=== PATIENT | female | born 1970 | race African-American/Black ===

== ENCOUNTER 2018-05-31 09:33 | Observation (INO) ==
[2018-05-31] MEDS ORDERED: Sod Chloride 0.9% Inj 1,000 ML IV.SIG ONE (10:01)
--- NOTE | 2018-05-31 10:19 | XR ---
EXAM DATE: 05/31/2018 10:14 AM EDT AGE/SEX: 47 years / Female INDICATIONS: Epigastric pain just under diaphgraghm. Rectal bleeding x 2 days. CLINICAL DATA: This is the patient's initial encounter. Patient reports that signs and symptoms have been present for 2 days and indicates a pain score of 7/10. MEDICAL/SURGICAL HISTORY: . Peptic ulcer. Cholecystectomy. Tubal ligation. Knee sx. COMPARISON: No prior exams available for comparison. FINDINGS: A single AP view of the chest demonstrates the lungs to be symmetrically aerated without evidence of mass, infiltrate or effusion. The cardiomediastinal contours are unremarkable. Osseous structures a re intact. CONCLUSION: No acute cardiopulmonary disease Electronically signed by: Jaylan Park MD 05/31/2018 10:18 AM EDT
[2018-05-31 10:23] LABS: Baso % (Auto) 0.6 % (0.0-2.0); Eos # (Auto) 0.1 th/mm3 (0.0-0.4); Hematocrit 33.6 % (35.0-46.0); Hemoglobin 11.5 gm/dL (11.6-15.3); Lymph # (Auto) 1.7 th/mm3 (1.0-4.8); Mean Corpuscular HGB Conc 34.3 % (32.0-36.0); Mean Corpuscular Hemoglobin 30.2 pg (27.0-34.0); Mean Corpuscular Volume 88.2 fL (80.0-100.0); Mean Platelet Volume 8.4 fL (7.0-11.0); Mono # (Auto) 0.3 th/mm3 (0.0-0.9); Mono % (Auto) 4.2 % (0.0-8.0); Neut # (Auto) 5.1 th/mm3 (1.8-7.7); Neut % (Auto) 69.2 % (16.0-70.0); Platelet Count 322 th/mm3 (150-450); Red Blood Count 3.81 mil/mm3 (4.00-5.30); Red Cell Distribution Width 13.7 % (11.6-17.2); White Blood Count 7.2 th/mm3 (4.0-11.0)
[2018-05-31 10:33] LABS: Chloride 106 meq/L (98-107); Potassium 4.3 meq/L (3.5-5.1); Sodium 139 meq/L (136-145)
[2018-05-31 10:36] LABS: Activated Partial Thrombo Time 27.5 sec (24.3-30.1); Calcium 8.6 mg/dL (8.5-10.1); INR 1.1 Ratio; Prothrombin Time 11.6 sec (9.8-11.6)
[2018-05-31 10:37] LABS: Albumin 3.3 g/dL (3.4-5.0); Anion Gap 8 meq/L (5-15); Blood Urea Nitrogen 10 mg/dL (7-18); Carbon Dioxide 25.4 meq/L (21.0-32.0); Glucose,Random 96 mg/dL (74-106); Lipase 143 U/L (73-393)
[2018-05-31 10:38] LABS: Bilirubin,Urine Negative (Negative); Clarity,Urine Clear (Clear); Color,Urine Yellow (Yellw/Straw); Glucose,Urine (UA) Negative (Negative); Leukocyte Esterase,Urine Negative (Negative); Nitrite,Urine Negative (Negative); PH,Urine 6.5 (5.0-8.5); Urobilinogen,Urine 0.2 mg/dL (Less than 2)
[2018-05-31 10:40] LABS: Alanine Aminotransferase 16 U/L (10-53); Aspartate Aminotransferase 13 U/L (15-37); Glomerular Filtration Rate 75 mL/min (>89)
[2018-05-31 10:41] LABS: Total Protein 7.9 g/dL (6.4-8.2)
--- NOTE | 2018-05-31 10:41 | ED ---
HPI General Chief complaint: Abdominal Pain Stated complaint: Rectal Bleeding x 2 Days Time Seen by Provider: 05/31/18 09:50 History of Present Illness HPI narrative: 47-year-old female here for evaluate blood in the stool. Patient has been having epigastric pain for the last 3 days followed by bright red blood in the stool as well as black stool for the last 2 days, patient tried omeprazole [id number] for pain but did not help, she called her primary care physician who told her to come to the ER. Patient rates the epigastric pain as 6 out of 10, constant, nothing makes it better but leaning forward makes it worse, no nausea or vomiting. Related Data Home Medications Medication Instructions Recorded Confirmed cholecalciferol (vitamin D3) 2,000 unit PO DAILY 05/31/18 05/31/18 [Vitamin D3] [id number]-[id number]-caekwiw fum 1 tab PO DAILY 05/31/18 05/31/18 [Multi Vitamin] Allergies Allergy/AdvReac Type Severity Reaction Status Date / Time No Known Allergies Allergy Unverified 05/31/18 09:37 Review of Systems Except as stated in HPI: all other systems reviewed are negative [facility] Medical History Medical History Peptic ulcer (Acute) Tubal ligation status (Acute) Surgical History Surgical History H/O knee surgery (Acute) Hx of cholecystectomy (Acute) Social History Social History Substance History: No History of Abuse Smoking Status: Never smoker How Often Do You Have a Drink Containing Alcohol: 2 to 4 times a month Recent Travel in [facility] within the Last 8 Weeks: No Recent Out of Country Travel within the Last 8 Weeks: No Immunization History Tetanus Immunization: <5 Years Hx Influenza Vaccine This Season: Yes Exam Narrative Exam Narrative: GENERAL: Alert oriented x3 no acute distress. SKIN: Focused skin assessment warm/dry. HEAD: Atraumatic. Normocephalic. EYES: Pupils equal and round. No scleral icterus. No injection or drainage. ENT: No nasal bleeding or discharge. Mucous membranes pink and moist. NECK: Trachea midline. No JVD. CARDIOVASCULAR: Regular rate and rhythm. No murmur appreciated. RESPIRATORY: No accessory muscle use. Clear to auscultation. Breath sounds equal bilaterally. GASTROINTESTINAL: Abdomen soft, non-tender, nondistended. Hepatic and splenic margins not palpable. MUSCULOSKELETAL: No obvious deformities. No clubbing. No cyanosis. No edema. NEUROLOGICAL: Awake and alert. No obvious cranial nerve deficits. Motor grossly within normal limits. Normal speech. PSYCHIATRIC: Appropriate mood and affect; insight and judgment normal. Course Initial Documented Vital Signs Temperature 98.1 F 05/31/18 09:37 Pulse Rate 65 05/31/18 09:37 Respiratory Rate 18 05/31/18 09:37 Blood Pressure 142/82 H 05/31/18 09:37 Pulse Oximetry 98 05/31/18 09:37 Last Documented Vital Signs Temperature 98.1 F 05/31/18 09:37 Pulse Rate 69 05/31/18 10:22 Respiratory Rate 16 05/31/18 10:22 Blood Pressure 149/81 H 05/31/18 10:22 Pulse Oximetry 98 05/31/18 10:22 Medical Decision Making MDM Narrative Medical decision making narrative: 47-year-old female here for evaluation of epigastric pain and blood/black stool, Hemoccult stool was positive here in the ER, patient is post stable not hypertensive not in acute distress. Physical examination is unremarkable chest x-ray shows no evidence of free air, no rebound or concern of perforated ulcer, she was given 1 L of IV fluids and 40 mg of Protonix. Patient will be admitted for further evaluation. Lab Data Result diagrams: 05/31/18 10:17 05/31/18 10:17 Lab Results 05/31/18 05/31/18 05/31/18 Range/Units 10:17 10:17 10:17 CBC w Diff Auto diff final WBC 7.2 (4.0-11.0) th/mm3 RBC 3.81 L (4.00-5.30) mil/mm3 Hgb 11.5 L (11.6-15.3) gm/dL Hct 33.6 L (35.0-46.0) % MCV 88.2 (80.0-100.0) fL MCH 30.2 (27.0-34.0) pg MCHC 34.3 (32.0-36.0) % RDW 13.7 (11.6-17.2) % Plt Count 322 (150-450) th/mm3 MPV 8.4 (7.0-11.0) fL Neut % (Auto) 69.2 (16.0-70.0) % Lymph % (Auto) 24.0 (9.0-44.0) % [place] % (Auto) 4.2 (0.0-8.0) % Eos % (Auto) 2.0 (0.0-4.0) % Baso % (Auto) 0.6 (0.0-2.0) % Neut # (Auto) 5.1 (1.8-7.7) th/mm3 Lymph # (Auto) 1.7 (1.0-4.8) th/mm3 [place] # (Auto) 0.3 (0.0-0.9) th/mm3 Eos # (Auto) 0.1 (0.0-0.4) th/mm3 Baso # (Auto) 0.0 (0.0-0.2) th/mm3 WBC Differential . PT 11.6 (9.8-11.6) sec INR 1.1 Ratio APTT 27.5 (24.3-30.1) sec Sodium 139 (136-145) meq/L Potassium 4.3 (3.5-5.1) meq/L Chloride 106 (98-107) meq/L Carbon Dioxide 25.4 (21.0-32.0) meq/L Anion Gap 8 (5-15) meq/L BUN 10 (7-18) mg/dL Creatinine 0.97 (0.50-1.00) mg/dL Estimated GFR 75 L (>89) mL/min Random Glucose 96 (74-106) mg/dL Lactic Acid (0.4-2.0) mmol/L Calcium 8.6 (8.5-10.1) mg/dL Total Bilirubin 0.4 (0.2-1.0) mg/dL AST 13 L (15-37) U/L ALT 16 (10-53) U/L Alkaline Phosphatase 39 L (45-117) U/L Total Protein 7.9 (6.4-8.2) g/dL Albumin 3.3 L (3.4-5.0) g/dL Lipase 143 (73-393) U/L Urine Color (Yellw/Straw) Urine Clarity (Clear) Urine pH (5.0-8.5) Ur Specific [place] (1.002-1.035) Urine Protein (Neg-Trace) mg/dL Urine Glucose (UA) (Negative) mg/dL Urine Ketones (Negative) mg/dL Urine Occult Blood (Negative) Urine Nitrate (Negative) Urine Bilirubin (Negative) Urine Urobilinogen (Less than 2) mg/dL Ur Leukocyte Esterase (Negative) Urine RBC (0-3) /hpf Urine WBC (0-5) /hpf Ur Squamous Epith Cells (0-5) /hpf Micro UA Comment Urine Culture Comments 05/31/18 05/31/18 Range/Units 10:17 10:30 CBC w Diff WBC (4.0-11.0) th/mm3 RBC (4.00-5.30) mil/mm3 Hgb (11.6-15.3) gm/dL Hct (35.0-46.0) % MCV (80.0-100.0) fL MCH (27.0-34.0) pg MCHC (32.0-36.0) % RDW (11.6-17.2) % Plt Count (150-450) th/mm3 MPV (7.0-11.0) fL Neut % (Auto) (16.0-70.0) % Lymph % (Auto) (9.0-44.0) % [place] % (Auto) (0.0-8.0) % Eos % (Auto) (0.0-4.0) % Baso % (Auto) (0.0-2.0) % Neut # (Auto) (1.8-7.7) th/mm3 Lymph # (Auto) (1.0-4.8) th/mm3 [place] # (Auto) (0.0-0.9) th/mm3 Eos # (Auto) (0.0-0.4) th/mm3 Baso # (Auto) (0.0-0.2) th/mm3 WBC Differential PT (9.8-11.6) sec INR Ratio APTT (24.3-30.1) sec Sodium (136-145) meq/L Potassium (3.5-5.1) meq/L Chloride (98-107) meq/L Carbon Dioxide (21.0-32.0) meq/L Anion Gap (5-15) meq/L BUN (7-18) mg/dL Creatinine (0.50-1.00) mg/dL Estimated GFR (>89) mL/min Random Glucose (74-106) mg/dL Lactic Acid 0.8 (0.4-2.0) mmol/L Calcium (8.5-10.1) mg/dL Total Bilirubin (0.2-1.0) mg/dL AST (15-37) U/L ALT (10-53) U/L Alkaline Phosphatase (45-117) U/L Total Protein (6.4-8.2) g/dL Albumin (3.4-5.0) g/dL Lipase (73-393) U/L Urine Color Yellow (Yellw/Straw) Urine Clarity Clear (Clear) Urine pH 6.5 (5.0-8.5) Ur Specific [place] 1.010 (1.002-1.035) Urine Protein Negative (Neg-Trace) mg/dL Urine Glucose (UA) Negative (Negative) mg/dL Urine Ketones Negative (Negative) mg/dL Urine Occult Blood Small H (Negative) Urine Nitrate Negative (Negative) Urine Bilirubin Negative (Negative) Urine Urobilinogen 0.2 (Less than 2) mg/dL Ur Leukocyte Esterase Negative (Negative) Urine RBC 0-3 (0-3) /hpf Urine WBC 0-5 (0-5) /hpf Ur Squamous Epith Cells 0-5 (0-5) /hpf Micro UA Comment Culture not ind Urine Culture Comments Culture not ind Imaging Data Radiologist's impression: ITS Impressions Chest X-Ray 05/31/18 10:01 CONCLUSION: No acute cardiopulmonary disease Discharge Plan Discharge Disposition Patient Disposition: 02 Transfer to [facility] Physicians Team ED Provider: Sal King Primary Care Provider: NON STAFF,PROVIDER Rxs /Orders / Referrals /Forms Prescriptions: No Action cholecalciferol (vitamin D3) [Vitamin D3] 2,000 unit Capsule 2,000 unit PO DAILY RF: 0 [id number]-riuaohjv-kgglkcu fum [Multi Vitamin] 9 mg iron/15 mL Liquid 1 tab PO DAILY RF: 0 Discharge Interventions Interventions: Vital Signs Last Done: 05/31/18 10:22 Status ED Status: With Doctor
[2018-05-31 10:43] LABS: Alkaline Phosphatase 39 U/L (45-117)
[2018-05-31] MEDS ORDERED: Pantoprazole Inj 40 MG Vial IV.PUSH ONE (10:43)
[2018-05-31 10:52] LABS: RBC,Urine 0-3 /hpf (0-3); Squamous Epithelial Cell,Urine 0-5 /hpf (0-5); WBC,Urine 0-5 /hpf (0-5)
--- NOTE | 2018-05-31 13:59 | P.HPIM ---
History of Present Illness Primary Care Physician: PROVIDER NON STAFF Chief Complaint: rectal bleed History of Present Illness: patient is a 47 y/o female who presented to ER with rectal bleed. she says that she started to have some epigastric pain three days ago. later she started to have rectal bleed last night. she describes it as ' fresh blood'. she says that she had a couple of bloody bowel movements since last night. she denies any chest pain, sob or dizziness. she denies any history of NSAIDs use other than occasional use of motrin. - Diagnosis (1) Rectal bleed (2) Anemia (3) Epigastric pain Inpatient Certification: I certify that the inpatient services were ordered in accordance with Medicare regulations governing the order. This includes certification that hospital inpatient services are reasonable and necessary and in the case of services not specified as inpatient-only under 42 CFR 419.22(n), that they are appropriately provided as inpatient services in accordance to with the 2-midnight benchmark under 43 CFR 412.3(e) Estimated Total Length of Stay (Days): 2 Plans for Post Hospital Care: Home Review of Systems All other systems reviewed negative except as stated in HPI PMFSH - History History Provided By: Patient - Medical History Medical History: Medical History (Last Updated 05/31/18 @ 13:43 by LOUISA Grant) Peptic ulcer - Surgical History Surgical History: Surgical History (Last Updated 05/31/18 @ 13:43 by LOUISA Grant) H/O knee surgery History of tubal ligation Hx of cholecystectomy - Tobacco History Smoking Status: Never smoker - Alcohol History How Often Do You Have a Drink Containing Alcohol: 2 to 4 times a month - Substance Use History Substance History: No History of Abuse - Travel History Recent Travel in the [place] Within the Last 8 Weeks: No Recent Travel Out of the Country Within the Last 8 Weeks: No - Immunization History Tetanus Immunization: <5 Years Hx Influenza Vaccine This Season: Yes Medications and Allergies Active Medications: Active Medications Sodium Chloride (Ns Inj) 1,000 mls @ 100 mls/hr IV.CONT .Q10H MARGIE Pantoprazole Sodium (Protonix Inj) 40 mg IV.PUSH Q24H MARGIE Allergies Allergy/AdvReac Type Severity Reaction Status Date / Time No Known Allergies Allergy Unverified 05/31/18 09:37 Home Medications Medication Instructions Recorded Confirmed Type cholecalciferol (vitamin D3) 2,000 unit PO DAILY 05/31/18 05/31/18 History [Vitamin D3] mqbnedvy-maebudoy-qosypfy fum 1 tab PO DAILY 05/31/18 05/31/18 History [Multi Vitamin] Exam Vital signs: Vital Signs 05/31/18 09:37 05/31/18 10:22 05/31/18 12:21 Temperature 98.1 F Pulse Rate 65 69 63 Respiratory Rate 18 16 18 Blood Pressure 142/82 H 149/81 H 141/79 H Pulse Oximetry 98 98 97 05/31/18 13:40 Temperature 97.9 F Pulse Rate 54 L Respiratory Rate 18 Blood Pressure 117/66 Pulse Oximetry 100 Intake & Output 05/30/18 05/31/18 05/31/18 18:59 06:59 18:59 Intake Total 1000 / 1000 Balance 1000 / 1000 Weight 95.1 kg Intake: IV 1000 / 1000 NS Inj 1,000 ML @ Wide Open IV. 1000 / 1000 SIG BOLUS ONE Rx#:[id number] - Constitutional no acute distress - Routine HEENT Exam Head: Present: normocephalic, atraumatic - Routine Neck Exam Present: supple, full ROM - Routine Respiratory Exam Present: CTA bilaterally - Routine Cardiovascular Exam Present: RRR - Routine Abdominal Exam Present: soft, normoactive bowel sounds - Routine Neurological Exam Present: alert, oriented X3 Results - Labs CBC & Chem 7: 06/01/18 05:43 05/31/18 10:17 Labs: Short CBC 05/31/18 Range/Units 10:17 WBC 7.2 (4.0-11.0) th/mm3 Hgb 11.5 L (11.6-15.3) gm/dL Hct 33.6 L (35.0-46.0) % Plt Count 322 (150-450) th/mm3 BMP 05/31/18 10:17 Sodium 139 Potassium 4.3 Chloride 106 Carbon Dioxide 25.4 BUN 10 Creatinine 0.97 Calcium 8.6 Liver Function 05/31/18 Range/Units 10:17 Total Bilirubin 0.4 (0.2-1.0) mg/dL AST 13 L (15-37) U/L ALT 16 (10-53) U/L Alkaline Phosphatase 39 L (45-117) U/L Albumin 3.3 L (3.4-5.0) g/dL Urine 05/31/18 Range/Units 10:30 Urine Color Yellow (Yellw/Straw) Urine Clarity Clear (Clear) Urine pH 6.5 (5.0-8.5) Ur Specific [place] 1.010 (1.002-1.035) Urine Protein Negative (Neg-Trace) mg/dL Urine Glucose (UA) Negative (Negative) mg/dL - Imaging Impressions Chest X-Ray 05/31/18 10:01 CONCLUSION: No acute cardiopulmonary disease Caprini VTE Risk Assessment Caprini VTE Risk Assessment: No/Low Risk (score <= 1) VTE Pharmacological Exception Reason: Active bleeding Caprini Risk Assessment Model: Point Value = 1 Point Value = 2 Point Value = 3 Point Value = 5 Age 41-60 Minor surgery BMI > 25 kg/m2 Swollen legs Varicose veins or History of unexplained or recurrent spontaneous Oral contraceptives or hormone replacement Sepsis (< 1 month) Serious lung disease, including pneumonia (< 1 month) Abnormal pulmonary function Acute myocardial infarction Congestive heart failure (< 1 month) History of inflammatory bowel disease Medical patient at bed rest Age 61-74 Arthroscopic surgery Major open surgery (> 45 min) Laparoscopic surgery (> 45 min) Malignancy Confined to bed (> 72 hours) Immobilizing plaster cast Central venous access Age >= 75 History of VTE Family history of VTE Factor V Leiden Prothrombin [id number] Lupus anticoagulant Anticardiolipin antibodies Elevated serum homocysteine Heparin-induced thrombocytopenia Other congenital or acquired thrombophilia Stroke (< 1 month) Elective arthroplasty Hip, pelvis, or leg fracture Acute spinal cord injury (< 1 month) Prophylaxis Regimen: Total Risk Factor Score Risk Level Prophylaxis Regimen 0-1 Low Early ambulation 2 Moderate Order ONE of the following: *Sequential Compression Device (SCD) *Heparin 5000 units SQ BID 3-4 Higher Order ONE of the following medications: *Heparin 5000 units SQ TID *Enoxaparin/Lovenox 40 mg SQ daily (WT < 150 kg, CrCl > 30 mL/min) *Enoxaparin/Lovenox 30 mg SQ daily (WT < 150 kg, CrCl > 10-29 mL/min) *Enoxaparin/Lovenox 30 mg SQ BID (WT < 150 kg, CrCl > 30 mL/min) AND/OR *Sequential Compression Device (SCD) 5 or more Highest Order ONE of the following medications: *Heparin 5000 units SQ TID (Preferred with Epidurals) *Enoxaparin/Lovenox 40 mg SQ daily (WT < 150 kg, CrCl > 30 mL/min) *Enoxaparin/Lovenox 30 mg SQ daily (WT < 150 kg, CrCl > 10-29 mL/min) *Enoxaparin/Lovenox 30 mg SQ BID (WT < 150 kg, CrCl > 30 mL/min) AND *Sequential Compression Device (SCD) Assessment and Plan - Assessment (1) Rectal bleed Code(s): K62.5 - Hemorrhage of anus and rectum Status: Acute Plan: monitor H/H- will consult GI. continue with supportive care. (2) Anemia Code(s): D64.9 - Anemia, unspecified Status: Acute Plan: likely acute due to rectal bleed- continue monitoring H/H and transfuse with PRBC as needed- GI consulted as noted above. (3) Epigastric pain Code(s): R10.13 - Epigastric pain Status: Acute Plan: suspect PUD- continue PPI and consult GI. - Plan Discharge Planning: awaiting GI evaluation.
[2018-05-31] MEDS: Sod Chloride 0.9% Inj 1,000 ML IV.CONT SCH (14:17)
[2018-05-31] MEDS ORDERED: Diatrizoate Meglum/Diatrizoate Sod Liq 9 ML UDC PO ONE (16:45)
[2018-05-31] MEDS ORDERED: PEG 3350/E-Lyte Soln 4000 ML Bottle PO ONE (18:00)
[2018-05-31 18:07] LABS: Hemoglobin 10.8 gm/dL (11.6-15.3)
[2018-06-01 06:26] LABS: Hematocrit 33.3 % (35.0-46.0); Hemoglobin 10.9 gm/dL (11.6-15.3); Mean Corpuscular HGB Conc 32.7 % (32.0-36.0); Mean Corpuscular Hemoglobin 29.7 pg (27.0-34.0); Mean Corpuscular Volume 90.8 fL (80.0-100.0); Mean Platelet Volume 8.6 fL (7.0-11.0); Platelet Count 303 th/mm3 (150-450); Red Blood Count 3.67 mil/mm3 (4.00-5.30); White Blood Count 7.7 th/mm3 (4.0-11.0)
[2018-06-01] MEDS: Pantoprazole Inj 40 MG Vial IV.PUSH SCH (09:14)
[2018-06-01] MEDS: Sod Chloride 0.9% Inj 1,000 ML IV.CONT SCH ×2 (09:16→09:17)
--- NOTE | 2018-06-01 13:39 | P.PNIM ---
Subjective Interval history: in no acute distress. no further rectal bleed over night. has minimal epigastric pain. no sob or dizziness. Physical Exam Vital signs: Vital Signs 05/31/18 13:40 05/31/18 17:18 05/31/18 20:00 Temperature 97.9 F 98.0 F 97.8 F Pulse Rate 54 L 64 58 L Respiratory Rate 18 20 Blood Pressure 117/66 134/76 151/85 H Pulse Oximetry 100 99 100 06/01/18 00:00 06/01/18 04:00 06/01/18 08:26 Temperature 97.0 F L 98.6 F 97.8 F Pulse Rate 61 90 63 Respiratory Rate 20 16 20 Blood Pressure 118/65 157/76 H 116/64 Pulse Oximetry 98 95 99 06/01/18 12:02 Temperature 97.4 F L Pulse Rate 61 Respiratory Rate 20 Blood Pressure 122/60 Pulse Oximetry 99 Intake & Output 05/31/18 06/01/18 06/01/18 18:59 06:59 18:59 Intake Total 1000 / 1000 1000 / 1000 Balance 1000 / 1000 1000 / 1000 Weight 95.1 kg 99.8 kg Intake: IV 1000 / 1000 1000 / 1000 NS Inj 1,000 ML @ 100 mls/hr IV 1000 / 1000 .CONT .Q10H MARGIE Rx#:[id number] NS Inj 1,000 ML @ Wide Open IV. 1000 / 1000 SIG BOLUS ONE Rx#:[id number] Other: # Voids 2 Date of Last Bowel Movement 05/31/18 06/01/18 - Constitutional no acute distress - Routine Respiratory Exam Present: CTA bilaterally - Routine Cardiovascular Exam Present: RRR - Routine Abdominal Exam Present: soft Comments: mild epigastric tenderness. - Routine Neurological Exam Present: alert, oriented X3 Results - Labs CBC & Chem 7: 06/01/18 05:43 05/31/18 10:17 Laboratory Results - last 24 hr 05/31/18 06/01/18 17:55 05:43 WBC 7.7 RBC 3.67 L Hgb 10.8 L 10.9 L Hct 31.0 L 33.3 L MCV 90.8 MCH 29.7 MCHC 32.7 RDW 13.0 Plt Count 303 MPV 8.6 - Imaging Impressions Abdomen/Pelvis CT 06/01/18 00:27 CONCLUSION: 1. Enlarged retroverted uterus without definite masses. 2. Otherwise, negative CT abdomen/pelvis with contrast. Assessment and Plan - Assessment (1) Rectal bleed Code(s): K62.5 - Hemorrhage of anus and rectum Status: Acute Plan: H/H stable- GI consult pending. continue with supportive care. (2) Anemia Code(s): D64.9 - Anemia, unspecified Status: Acute Plan: likely acute due to rectal bleed- continue monitoring H/H- GI consulted as noted above. (3) Epigastric pain Code(s): R10.13 - Epigastric pain Status: Acute Plan: suspect PUD- continue PPI and consult GI. - Plan Discharge Planning: awaiting GI evaluation.
[2018-06-02] MEDS: Sod Chloride 0.9% Inj 1,000 ML IV.CONT SCH ×2 (02:51→08:41)
--- NOTE | 2018-06-02 08:28 | P.PN ---
Subjective Interval history: resting comfortably with no distress. no further rectal bleed and no abdominal pain. wants to go home. Physical Exam Vital signs: Vital Signs 06/01/18 08:26 06/01/18 12:02 06/01/18 15:13 Temperature 97.8 F 97.4 F L 98.1 F Pulse Rate 63 61 76 Respiratory Rate 20 20 20 Blood Pressure 116/64 122/60 127/74 Pulse Oximetry 99 99 96 06/01/18 16:13 06/01/18 17:16 06/01/18 17:33 Temperature 98.1 F 98.7 F 98.5 F Pulse Rate 57 L 69 58 L Respiratory Rate 16 16 16 Blood Pressure 133/80 119/82 135/80 Pulse Oximetry 98 100 06/01/18 20:00 06/02/18 00:00 Temperature 98.5 F 97.6 F Pulse Rate 53 L 57 L Respiratory Rate 20 20 Blood Pressure 131/78 119/69 Pulse Oximetry 99 98 Intake & Output 06/01/18 06/02/18 06/02/18 18:59 06:59 18:59 Intake Total 1500 / 1500 1480 / 1480 Balance 1500 / 1500 1480 / 1480 Weight 99.6 kg Intake: IV 1000 / 1000 1000 / 1000 NS Inj 1,000 ML @ 100 mls/hr IV 1000 / 1000 1000 / 1000 .CONT .Q10H MARGIE Rx#:[id number] Oral 0 / 0 480 / 480 Other 500 / 500 Other: Other Intake Source Saline Solution # Voids 4 2 Date of Last Bowel Movement 06/01/18 06/01/18 - Constitutional no acute distress - Routine Respiratory Exam Present: CTA bilaterally - Routine Cardiovascular Exam Present: RRR - Routine Abdominal Exam Present: soft - Routine Neurological Exam Present: alert, oriented X3 Results - Labs CBC & Chem 7: 06/01/18 05:43 05/31/18 10:17 Assessment and Plan - Assessment (1) Rectal bleed Code(s): K62.5 - Hemorrhage of anus and rectum Status: Acute Plan: H/H stable- GI consulted- s/p EGD which was normal- s/p colonoscopy with diverticulosis,internal hemorrhoids. (2) Anemia Code(s): D64.9 - Anemia, unspecified Status: Acute Plan: likely acute due to rectal bleed- H/H stable- GI consulted as noted above. (3) Epigastric pain Code(s): R10.13 - Epigastric pain Status: Acute Plan: suspect PUD- continue PPI and consult GI. - Plan Discharge Planning: dc home today with f/u with pcp and GI.
--- NOTE | 2018-06-02 08:32 | P.DS ---
Date of admission: 05/31/18 11:00 Primary care physician: PROVIDER NON STAFF Brief History from admission: patient is a 47 y/o female who presented to ER with rectal bleed. she says that she started to have some epigastric pain three days ago. later she started to have rectal bleed last night. she describes it as ' fresh blood'. she says that she had a couple of bloody bowel movements since last night. she denies any chest pain, sob or dizziness. she denies any history of NSAIDs use other than occasional use of motrin. DS: Diagnosis - Discharge Diagnosis (1) Rectal bleed Status: Acute (2) Anemia Status: Acute (3) Epigastric pain Status: Acute DS: Summary Hospital Course: patient was admitted. GI consulted and she underwent EGD which was normal and colonoscopy which revealed diverticulosis and internal hemorrhoids. H/H remained fairly stable . rectal bleed stopped and she didn't have any abdominal pain at the time of discharge.otherwise the course in the hospital was uneventful. - Time Spent with Patient Total time spent providing and/or coordinating discharge services: Less than 30 minutes - Quality: VTE Deep Vein Thrombosis/Pulmonary Embolism Present on Admission: No Exam Vital signs: Vital Signs 06/01/18 12:02 06/01/18 15:13 06/01/18 16:13 Temperature 97.4 F L 98.1 F 98.1 F Pulse Rate 61 76 57 L Respiratory Rate 20 20 16 Blood Pressure 122/60 127/74 133/80 Pulse Oximetry 99 96 06/01/18 17:16 06/01/18 17:33 06/01/18 20:00 Temperature 98.7 F 98.5 F 98.5 F Pulse Rate 69 58 L 53 L Respiratory Rate 16 16 20 Blood Pressure 119/82 135/80 131/78 Pulse Oximetry 98 100 99 06/02/18 00:00 Temperature 97.6 F Pulse Rate 57 L Respiratory Rate 20 Blood Pressure 119/69 Pulse Oximetry 98 Intake & Output 06/01/18 06/02/18 06/02/18 18:59 06:59 18:59 Intake Total 1500 / 1500 1480 / 1480 Balance 1500 / 1500 1480 / 1480 Weight 99.6 kg Intake: IV 1000 / 1000 1000 / 1000 NS Inj 1,000 ML @ 100 mls/hr IV 1000 / 1000 1000 / 1000 .CONT .Q10H MARGIE Rx#:[id number] Oral 0 / 0 480 / 480 Other 500 / 500 Other: Other Intake Source Saline Solution # Voids 4 2 Date of Last Bowel Movement 06/01/18 06/01/18 - Constitutional no acute distress - Routine Respiratory Exam Present: CTA bilaterally - Routine Cardiovascular Exam Present: RRR - Routine Abdominal Exam Present: soft - Routine Neurological Exam Present: alert, oriented X3 Results Procedures completed during hospitalization: EGD/colonoscopy. - Impressions ITS Impressions Chest X-Ray 05/31/18 10:01 CONCLUSION: No acute cardiopulmonary disease Abdomen/Pelvis CT 06/01/18 00:27 CONCLUSION: 1. Enlarged retroverted uterus without definite masses. 2. Otherwise, negative CT abdomen/pelvis with contrast. Discharge Plan - Discharge Disposition Patient Disposition: 01 Discharge Home - Discharge Condition Condition: Good - Discharge Order Discharge Orders: Discharge Order (Routine); Ordered 06/02/18 Ordered By: Abigail Garcia - Physicians Team Primary Care Provider: NON STAFF,PROVIDER Attending Provider: Abigail Garcia Other Providers: ; Niki Nguyen MD
[2018-06-02] MEDS: Pantoprazole Inj 40 MG Vial IV.PUSH SCH (09:37)
== END 2018-06-02 09:41 | disposition home or self-care (01) ==
LOC: PHED 09:33 → PHEDA 09:33 → PH3 09:33
PROVIDERS: ADMIT Internal Medicine; ATTEND Internal Medicine
PROC: COLONOS (2018-06-01 16:52)
PROC: PANENDO (2018-06-01 16:52)